=== PATIENT | female | born 1950 ===

== ENCOUNTER 2016-07-22 16:43 | Emergency (ER) | payer OTHER ==
[2016-07-22 16:43] VITALS: BMI 25.6
[2016-07-22 16:53] VITALS: BP 132/77; PULSE 88; RESP 16; TEMP 97.6; O2SAT 99
--- NOTE | 2016-07-22 17:11 | ED PDOC ---
HPI: Skin/Bite Injury Time Seen by Provider: 07/22/16 16:55 Chief Complaint (Nursing): Abnormal Skin Integrity Chief Complaint (Provider): Rash History Per: Patient Additional Complaint(s): 65 yo female, PMH of High Cholesterol, presents to ED for evaluation of an c/o itchy, red rash x 3 weeks. Pt reports that she was seen and evaluated by her PMD at the onset of symptoms and was prescribed Benadryl and Medrol dose pack. Symptoms resolved; however, returned when the medication was finished. Pt denies any cp or SOB Pt beleives her new laundry detergen might be the triggering factor. Past Medical History Reviewed: Nursing Documentation, Vital Signs Vital Signs: Last Vital Signs Temp 97.6 F 07/22/16 16:51 Pulse 88 07/22/16 16:51 Resp 16 07/22/16 16:51 BP 132/77 07/22/16 16:51 Pulse Ox 99 07/22/16 17:11 - Medical History PMH: Hypercholesterolemia - Surgical History Surgical History: Cholecystectomy - Family History Family History: States: No Known Family Hx - Social History Current smoker - smoking cessation education provided: No Alcohol: None Drugs: Denies - Home Medications Home Medications: Ambulatory Orders Medication Instructions Recorded Alendronate Sodium 70 mg PO QWK 05/13/14 Cholecalciferol [Vitamin D 1000 IU] 50,000 iu PO QWK 05/13/14 Pravastatin Sodium [Pravastatin] 20 mg PO DAILY 05/13/14 DiphenhydrAMINE [Benadryl] 50 mg PO Q4H PRN #30 cap 07/22/16 Methylprednisolone [Medrol Dose 4 mg PO DAILY #21 mg 07/22/16 Pack (21 tabs)] - Allergies Allergies/Adverse Reactions: Allergies Allergy/AdvReac Type Severity Reaction Status Date / Time No Known Allergies Allergy Verified 05/13/14 09:35 Review of Systems ROS Statement: Except As Marked, All Systems Reviewed And Found Negative Skin: Positive for: Rash Physical Exam - Reviewed Nursing Documentation Reviewed: Yes Vital Signs Reviewed: Yes - Physical Exam Appears: Positive for: Well, Non-toxic, No Acute Distress Head Exam: Positive for: ATRAUMATIC, NORMAL INSPECTION, NORMOCEPHALIC Skin: Positive for: Normal Color, Warm, Rash (erythematous maculopapular rash noted to abdomen) Eye Exam: Positive for: EOMI, Normal appearance, PERRL ENT: Positive for: Normal ENT Inspection Neck: Positive for: Normal, Painless ROM Cardiovascular/Chest: Positive for: Regular Rate, Rhythm Respiratory: Positive for: CNT, Normal Breath Sounds Gastrointestinal/Abdominal: Positive for: Normal Exam, Bowel Sounds, Soft Back: Positive for: Normal Inspection Extremity: Positive for: Normal ROM Neurologic/Psych: Positive for: Alert, Oriented - ECG O2 Sat by Pulse Oximetry: 99 Medical Decision Making Medical Decision Making: Advised to switch back to former detergent Administered Prednisone and Benadryl while in ED. RX written to continue medications at home. Return to ED with any concerns. Disposition - Clinical Impression Clinical Impression: Urticaria - Patient ED Disposition Is Patient to be Admitted: No - Disposition Disposition: Routine/Home Disposition Time: 19:23 Condition: GOOD Prescriptions: DiphenhydrAMINE [Benadryl] 50 mg PO Q4H PRN #30 cap PRN Reason: Allergy Symptoms Methylprednisolone [Medrol Dose Pack (21 tabs)] 4 mg PO DAILY #21 mg Instructions: Urticaria (ED) - POA Present On Arrival: None
== END 2016-07-22 19:26 | disposition home or self-care (01) ==
LOC: H.ER 16:43
DX: L50.9 Urticaria, unspecified (principal); E78.00 Pure hypercholesterolemia, unspecified; R21 Rash and other nonspecific skin eruption